=== PATIENT | female | born 1985 | race Caucasian/White ===

== ENCOUNTER 2018-04-24 22:53 | Inpatient (IN) ==
--- NOTE | 2018-04-24 23:29 | ED ---
HPI Related Data : 2 Para: 1 Total number of abortions (spontaneous and elective): 0 Allergies Allergy/AdvReac Type Severity Reaction Status Date / Time No Known Allergies Allergy Verified 04/24/18 23:49 General Chief complaint: OB/Uterine Contractions Stated complaint: In Labor Time Seen by Provider: 04/24/18 23:16 Source: patient and family Mode of arrival: ambulatory Limitations: no limitations POC and Strep B Test Results POC Urine Results: Positive Group B Strep: Positive History of Present Illness HPI Narrative: 32-year-old female presents to the emergency department by private transportation the care of family in active labor. Patient is 2 para 1 AB 0. Mother reports estimated delivery date was 04/21/18; patient's care has been through welding machine operator in [place]. Patient is GBS positive. Patient's had no recent fever. Patient's had no issues with blood pressure or blood sugar during . Patient is scheduled to have vaginal delivery. Patient states symptoms of contractions began approximate hour ago with water breaking. Initial contractions were every 2-5 minutes apart more recently have increased every minute to 30 seconds apart and now are coming steadily at every 30 seconds. Patient reports urge to push. Patient denies any known medical problems denies any allergies takes no medications except vitamins. No complaint of chest pain abdominal pain shortness of breath nausea vomiting. Patient has had small amount of stool passage. MD Complaint: Reports vaginal bleeding, "contractions" and imminent delivery Onset (ago): hour(s) (1) Pain Consistency: intermittent Location: Reports pelvis Severity: severe Severity scale (1-10): 5 Quality: Cramping Radiation: Reports pelvis Relieving factors: none Exacerbating factors: none Associated symptoms: Denies nausea, vomiting, vaginal bleeding, vaginal discharge, abdominal pain, dysuria, headache, vision changes, malaise, dyspareunia, rash, seizure, shortness of breath, syncope and weakness Vaginal discharge: Reports none Vaginal bleeding: Reports none If LMP Unknown, Indicate Estimate: 42 weeks ago Expected Date of Delivery: 04/24/18 Number of Weeks : 40 weeks 3 days OB History - Current : no complications (GBS (+)) OB History - Previous Pregnancies: no complications care: Reports followed by OB (welding machine operator --[facility]) Review of Systems ROS: all other systems reviewed are negative PMFSH - Medical History Medical History Patient denies medical problems (Acute) Surgical History Surgical History No history of previous surgery (Acute) Social History Social History Substance History: No History of Abuse Smoking Status: Never smoker How Often Do You Have a Drink Containing Alcohol: Never Recent Travel in [place] within the Last 8 Weeks: No Recent Out of Country Travel within the Last 8 Weeks: No Exam Narrative Exam Narrative: GENERAL: Well-nourished, well-developed patient. SKIN: Focused skin assessment warm/dry. HEAD: Normocephalic. EYES: No scleral icterus. No injection or drainage. NECK: Supple, trachea midline. No JVD or lymphadenopathy. CARDIOVASCULAR: Regular rate and rhythm without murmurs, gallops, or rubs. RESPIRATORY: Breath sounds equal bilaterally. No accessory muscle use. GASTROINTESTINAL: Abdomen soft, non-tender, fundal height to umbilicus. Pelvic exam: Normal external exam perineum bulging; . No blood MUSCULOSKELETAL: No cyanosis, or edema. BACK: Nontender without obvious deformity. No CVA tenderness. Procedures Vaginal Delivery Presentation: vertex Amniotic fluid OB: clear Nuchal Cord: no Infant delivery type: spontaneous vaginal delivery Heart Rate: 100 bpm or Greater Respiratory Effort: Spontaneous/Strong Cry Color: Bluish Hands or Feet Muscle Tone: Appropriate for Age Reflex Response: Prompt Response Scoring Interval: Five (5) Minutes (9) Cord Blood Obtained: Yes Cord Clamped: Yes Placenta Delivered: yes Patient Tolerated Procedure: well Complications: none Care Transferred To: DR Palmer at [facility] OB ED Course Consultations Consultation #1: Discussed with Dr. Palmer OB ED will accept patient in transfer of care from [facility] ED to [facility] OB ED Initial Documented Vital Signs Pulse Rate 83 04/24/18 23:00 Respiratory Rate 20 04/24/18 23:00 Blood Pressure 110/62 04/24/18 23:00 Pulse Oximetry 100 04/24/18 23:00 Last Documented Vital Signs Pulse Rate 83 04/24/18 23:00 Respiratory Rate 20 04/24/18 23:00 Blood Pressure 110/62 04/24/18 23:00 Pulse Oximetry 100 04/24/18 23:00 Medical Decision Making MDM Narrative Medical decision making narrative: 32-year-old 2 para 1 presents 1 hour after water breaking and with contractions 1 minute to 30 seconds apart presents with active contraction; bedside heart tones 168 direct visualization of the perineum for pelvic shows patient to be with perineum bulging and . Mother has been connected to monitoring coordinator supplemental oxygen applied IV access obtain maintenance IV fluids administered. At 23:08 PM spontaneous vaginal delivery of term without complication ; no episiotomy, no tears; at 1 minute 8 at 5 minutes 9. HR 168, rr 52 Baby girl chart: [id number] Medical Screen Exam Complete: Yes Emergency Medical Condition: Yes Differential Diagnosis Differential Diagnosis: Impending precipitous delivery Lab Data Result diagrams: 04/24/18 23:50 04/24/18 23:50 POC Results POC Urine Results Positive Discharge Plan Discharge Disposition Patient Disposition: 30 Still Patient Discharge Condition Condition: Stable Discharge Details Diagnosis: Normal delivery at term Physicians Team ED Provider: Telma Busch Primary Care Provider: Primary Care Brie Higgins Status ED Status: With Doctor
[2018-04-25 00:03] VITALS: O2SAT 100
[2018-04-25 00:06] LABS: Baso % (Auto) 0.4 % (0.0-2.0); Eos # (Auto) 0.1 th/mm3 (0.0-0.4); Eos % (Auto) 1.2 % (0.0-4.0); Hematocrit 40.2 % (35.0-46.0); Hemoglobin 13.4 gm/dL (11.6-15.3); Lymph # (Auto) 2.8 th/mm3 (1.0-4.8); Lymph % (Auto) 38.8 % (9.0-44.0); Mean Corpuscular HGB Conc 33.4 % (32.0-36.0); Mean Corpuscular Volume 89.9 fL (80.0-100.0); Mean Platelet Volume 9.1 fL (7.0-11.0); Mono # (Auto) 0.6 th/mm3 (0.0-0.9); Mono % (Auto) 7.7 % (0.0-8.0); Neut # (Auto) 3.8 th/mm3 (1.8-7.7); Neut % (Auto) 51.9 % (16.0-70.0); Platelet Count 192 th/mm3 (150-450); Red Blood Count 4.48 mil/mm3 (4.00-5.30); Red Cell Distribution Width 13.1 % (11.6-17.2); White Blood Count 7.3 th/mm3 (4.0-11.0)
[2018-04-25 00:11] LABS: Chloride 107 meq/L (98-107); Potassium 3.6 meq/L (3.5-5.1); Sodium 139 meq/L (136-145)
[2018-04-25 00:14] LABS: Anion Gap 11 meq/L (5-15); Blood Urea Nitrogen 9 mg/dL (7-18); Calcium 8.5 mg/dL (8.5-10.1); Carbon Dioxide 21.2 meq/L (21.0-32.0); Glucose,Random 92 mg/dL (74-106)
[2018-04-25 00:15] LABS: Activated Partial Thrombo Time 28.5 sec (23.4-31.7); INR 0.9 Ratio; Prothrombin Time 9.4 sec (9.8-11.6)
[2018-04-25 00:18] LABS: Glomerular Filtration Rate Greater Than 89 mL/min (>89)
[2018-04-25 01:01] VITALS: RESP 18
[2018-04-25] MEDS ORDERED: Oxytocin 30 Units/500ml Premix 30 UNITS/500 ML BAG ONE (01:10)
[2018-04-25] MEDS ORDERED: Lidocaine 1% Inj 50 ML Vial ONE (01:11)
[2018-04-25] MEDS ORDERED: miSOPROStol 200 MCG Tablet ONE (01:27)
--- NOTE | 2018-04-25 01:34 | P.PN ---
Subjective Interval history: [facility] Attending The patient is a 32 year-old P2 status post precipitous outside delivery at [facility]. She presents with an intact appearing placenta. Moderate bleeding but has not yet received uterotonics and has just started breast feeding. The patient was examined and a partial second degree laceration was noted of the vagina and perineum. This laceration was noted to be bleeding. The patient was consented verbally for repair. Approximately 3 cc 1% lidocaine was instilled for local anesthesia and this laceration was repaired with 2-0 chromic with excellent hemostasis and cosmesis. The patient tolerated the procedure well. Oxytocin 500 cc bolus running and 1000 mcg misoprostol placed rectally. Will admit to and continue to follow closely. Physical Exam Vital signs: Vital Signs 04/24/18 23:00 04/25/18 00:07 04/25/18 01:00 Pulse Rate 83 89 72 Respiratory Rate 20 16 18 Blood Pressure 110/62 122/65 119/81 Pulse Oximetry 100 100 04/25/18 01:15 Pulse Rate Respiratory Rate 18 Blood Pressure Pulse Oximetry Intake & Output 04/24/18 04/24/18 04/25/18 06:59 18:59 06:59 Weight 69.4 kg Results - Labs CBC & Chem 7: 04/24/18 23:50 04/24/18 23:50 Laboratory Results - last 24 hr 04/24/18 04/24/18 04/24/18 23:50 23:50 23:50 CBC w Diff Auto diff final WBC 7.3 RBC 4.48 Hgb 13.4 Hct 40.2 MCV 89.9 MCH 30.0 MCHC 33.4 RDW 13.1 Plt Count 192 MPV 9.1 Neut % (Auto) 51.9 Lymph % (Auto) 38.8 [place] % (Auto) 7.7 Eos % (Auto) 1.2 Baso % (Auto) 0.4 Neut # (Auto) 3.8 Lymph # (Auto) 2.8 [place] # (Auto) 0.6 Eos # (Auto) 0.1 Baso # (Auto) 0.0 WBC Differential . Differential Comment . PT 9.4 L INR 0.9 APTT 28.5 Sodium 139 Potassium 3.6 Chloride 107 Carbon Dioxide 21.2 Anion Gap 11 BUN 9 Creatinine 0.66 Estimated GFR Greater than 89 Random Glucose 92 Calcium 8.5
[2018-04-25] MEDS ORDERED: Naloxone Inj 0.4 MG/ML Vial IV.PUSH PRN (01:45)
[2018-04-25] MEDS ORDERED: Acetaminophen 325 MG Tablet PO PRN (01:45)
[2018-04-25] MEDS ORDERED: Witch Hazel 50%/Glyderin 12.5% 40 Pad Jar RECTAL PRN (01:45)
[2018-04-25] MEDS ORDERED: Benzocaine 20% Top Spray 60 ML Can TOPICAL PRN (01:45)
[2018-04-25] MEDS ORDERED: Oxytocin 30 Units/500ml Premix 30 UNITS/500 ML BAG IV.SIG ONE (01:45)
[2018-04-25] MEDS ORDERED: Oxytocin 30 Units/500ml Premix 30 UNITS/500 ML BAG IV.CONT PRN (01:45)
[2018-04-25] MEDS ORDERED: Bisacodyl 10 MG Supp RECTAL PRN (01:45)
[2018-04-25] MEDS ORDERED: Zolpidem Tartrate 5 MG Tablet PO PRN (01:45)
--- NOTE | 2018-04-25 02:06 | P.HPOB ---
History of Present Illness Primary Care Physician: No Primary Care Physician Chief Complaint: Precipitous delivery History of Present Illness: Patient is a 32-year-old who presented to the [facility] ED after onset of contractions and urge to push. Around 2100 today she began to feel increased contractions about every 2 minutes and had a [place] of fluid at home. She had been receiving care through a licensed certified orthotist complaining her no presents today in [facility], however she did not believe that she would make it there in time, so she presented to the [facility] he. She had a precipitous delivery in the [facility] ED, and then was transferred here for care. She was GBS positive, however did not presents to the hospital in time for antibiotic administration. She had A+ blood type. She reports no problems with her . She did come with a bleeding partial second-degree laceration which was repaired by Dr. Palmer. She does report that she had some heavy bleeding after last delivery, however she did not require blood transfusion and is not sure of the amount of bleeding. She denies nausea, vomiting, chest pain, palpitations, shortness of breath, calf pain or tenderness, vaginal bleeding prior to [place] of fluid. care: Through a licensed certified orthotist and had planned on giving at a birthing center in [facility]. GBS positive. Blood type: A positive. No other abnormalities seen on review of records. Denies hypertension and diabetes. Past medical: Denies medical problems or prior hospitalizations. Past surgical: Denies surgical history Weeks Gestation:: 40 Para: 2 : 2 - Inpatient Certification I certify that the inpatient services were ordered in accordance with Medicare regulations governing the order. This includes certification that hospital inpatient services are reasonable and necessary and in the case of services not specified as inpatient-only under 42 CFR 419.22(n), that they are appropriately provided as inpatient services in accordance to with the 2-midnight benchmark under 43 CFR 412.3(e) Estimated Total Length of Stay (Days): 2 Plans for Post Hospital Care: Home Review of Systems All other systems reviewed negative except as stated in HPI [facility] - History History Provided By: Patient - Medical / Surgical Hx Neg / Unobtainable Medical Problems Denied: Yes Surgical History: No Previous Surgery - Medical History Medical History: Medical History (Last Updated 04/25/18 @ 00:02 by Sujata [place], RN) Patient denies medical problems - Surgical History Surgical History: Surgical History (Last Updated 04/25/18 @ 00:02 by Sujata Calle RN) No history of previous surgery - Tobacco History Smoking Status: Never smoker - Alcohol History How Often Do You Have a Drink Containing Alcohol: Never - Substance Use History Substance History: No History of Abuse - Travel History Recent Travel in the [place] Within the Last 8 Weeks: No Recent Travel Out of the Country Within the Last 8 Weeks: No - Immunization History Tetanus Immunization: Unable to Assess Medications and Allergies Allergies Allergy/AdvReac Type Severity Reaction Status Date / Time No Known Allergies Allergy Verified 04/24/18 23:49 Home Medications Medication Instructions Recorded Confirmed Type No Known Home Medications 04/25/18 04/25/18 History Exam Vital signs: Vital Signs 04/24/18 23:00 04/25/18 00:07 04/25/18 01:00 Temperature Pulse Rate 83 89 72 Respiratory Rate 20 16 18 Blood Pressure 110/62 122/65 119/81 Pulse Oximetry 100 100 04/25/18 01:15 04/25/18 01:33 04/25/18 01:44 Temperature 98.4 F Pulse Rate 63 Respiratory Rate 18 18 Blood Pressure 127/75 Pulse Oximetry Intake & Output 04/24/18 04/24/18 04/25/18 06:59 18:59 06:59 Weight 69.4 kg Narrative: General: Alert, well appearing, in no acute distress Skin: Warm and dry HEENT: Atraumatic. Moist mucus membranes Cardiac: Regular rate and rhythm without murmur Pulmonary: No increased work of breathing. Clear to auscultation bilaterally with good air movement. Abdominal: Non-tender. + Bowel sounds. uterus firm and at the level of the umbilicus Extremities: 2+ pedal pulses, no edema, no calf tenderness Results - Labs CBC & Chem 7: 04/24/18 23:50 04/24/18 23:50 Labs: Laboratory Results - last 24 hr 04/24/18 04/24/18 04/24/18 23:50 23:50 23:50 CBC w Diff Auto diff final WBC 7.3 RBC 4.48 Hgb 13.4 Hct 40.2 MCV 89.9 MCH 30.0 MCHC 33.4 RDW 13.1 Plt Count 192 MPV 9.1 Neut % (Auto) 51.9 Lymph % (Auto) 38.8 [place] % (Auto) 7.7 Eos % (Auto) 1.2 Baso % (Auto) 0.4 Neut # (Auto) 3.8 Lymph # (Auto) 2.8 [place] # (Auto) 0.6 Eos # (Auto) 0.1 Baso # (Auto) 0.0 WBC Differential . Differential Comment . PT 9.4 L INR 0.9 APTT 28.5 Sodium 139 Potassium 3.6 Chloride 107 Carbon Dioxide 21.2 Anion Gap 11 BUN 9 Creatinine 0.66 Estimated GFR Greater than 89 Random Glucose 92 Calcium 8.5 Blood Type 04/24/18 23:50 CBC w Diff WBC RBC Hgb Hct MCV MCH MCHC RDW Plt Count MPV Neut % (Auto) Lymph % (Auto) [place] % (Auto) Eos % (Auto) Baso % (Auto) Neut # (Auto) Lymph # (Auto) [place] # (Auto) Eos # (Auto) Baso # (Auto) WBC Differential Differential Comment PT INR APTT Sodium Potassium Chloride Carbon Dioxide Anion Gap BUN Creatinine Estimated GFR Random Glucose Calcium Blood Type A Positive Group B Strep: Positive Caprini VTE Risk Assessment Caprini VTE Risk Assessment: No/Low Risk (score <= 1) Caprini Risk Assessment Model: Point Value = 1 Point Value = 2 Point Value = 3 Point Value = 5 Age 41-60 Minor surgery BMI > 25 kg/m2 Swollen legs Varicose veins or History of unexplained or recurrent spontaneous Oral contraceptives or hormone replacement Sepsis (< 1 month) Serious lung disease, including pneumonia (< 1 month) Abnormal pulmonary function Acute myocardial infarction Congestive heart failure (< 1 month) History of inflammatory bowel disease Medical patient at bed rest Age 61-74 Arthroscopic surgery Major open surgery (> 45 min) Laparoscopic surgery (> 45 min) Malignancy Confined to bed (> 72 hours) Immobilizing plaster cast Central venous access Age >= 75 History of VTE Family history of VTE Factor V Leiden Prothrombin [id number] Lupus anticoagulant Anticardiolipin antibodies Elevated serum homocysteine Heparin-induced thrombocytopenia Other congenital or acquired thrombophilia Stroke (< 1 month) Elective arthroplasty Hip, pelvis, or leg fracture Acute spinal cord injury (< 1 month) Prophylaxis Regimen: Total Risk Factor Score Risk Level Prophylaxis Regimen 0-1 Low Early ambulation 2 Moderate Order ONE of the following: *Sequential Compression Device (SCD) *Heparin 5000 units SQ BID 3-4 Higher Order ONE of the following medications: *Heparin 5000 units SQ TID *Enoxaparin/Lovenox 40 mg SQ daily (WT < 150 kg, CrCl > 30 mL/min) *Enoxaparin/Lovenox 30 mg SQ daily (WT < 150 kg, CrCl > 10-29 mL/min) *Enoxaparin/Lovenox 30 mg SQ BID (WT < 150 kg, CrCl > 30 mL/min) AND/OR *Sequential Compression Device (SCD) 5 or more Highest Order ONE of the following medications: *Heparin 5000 units SQ TID (Preferred with Epidurals) *Enoxaparin/Lovenox 40 mg SQ daily (WT < 150 kg, CrCl > 30 mL/min) *Enoxaparin/Lovenox 30 mg SQ daily (WT < 150 kg, CrCl > 10-29 mL/min) *Enoxaparin/Lovenox 30 mg SQ BID (WT < 150 kg, CrCl > 30 mL/min) AND *Sequential Compression Device (SCD) Assessment and Plan - Diagnosis (1) 40 weeks gestation of Code(s): Z3A.40 - 40 weeks gestation of Status: Acute (2) Precipitate labour, delivered Code(s): O62.3 - Precipitate labor Status: Acute - Plan 32 year old female who is PPD#0 s/p precipitous vaginal delivery. She was GBS positive and not treated due to the timing of her presentation. -Second-degree partial laceration noted to be bleeding was repaired by Dr. Palmer -Patient received 500 cc bolus of Pitocin and 1000 mcg of rectal misoprostol -Admit to labor and delivery with expectation to transfer to mother baby -Continue routine care. -Motrin /APAP as needed for pain. Care was discussed with: Dr. Palmer
[2018-04-25 03:06] LABS: Amphetamine Urine With Conf Neg (Neg); Benzodiazepine Urine With Conf Neg (Neg)
[2018-04-25 08:04] VITALS: BP 131/82; PULSE 69; TEMP 98.5
[2018-04-25] MEDS ORDERED: Senna/Docusate Sodium 8.6/50 MG Tablet PO SCH (09:00)
[2018-04-25] MEDS ORDERED: Diphtheria/Tetanus/Pertussis Vaccine Inj 0.5 ML Syringe IM ONE (16:00)
[2018-04-25] MEDS ORDERED: Measles/Mumps/Rubella Vaccine Inj 0.5 ML Vial SQ ONE (16:00)
== END 2018-04-25 14:30 | disposition left against medical advice (07) ==
LOC: PHED 22:53 → H2E 04-25 00:14 → H1EA 04-25 02:29
PROVIDERS: ADMIT Obstetrics & Gynecology; ATTEND Obstetrics & Gynecology